=== PATIENT | male | born 1985 | race Caucasian/White ===

== ENCOUNTER 2020-08-20 16:52 | Outpatient (REF) | payer OTHER, SELFPAY ==
--- NOTE | 2020-08-20 | XR_ITS ---
EXAMINATION: XR LUMBOSACRAL SPINE WITH OBLIQUES CLINICAL INFORMATION: Low back pain with bilateral sciatica. COMPARISON: None TECHNIQUE: AP, both oblique, and lateral views of the lumbar spine. Lateral view of the lumbosacral junction. FINDINGS: Mild thoracolumbar levoscoliosis is seen with apex at L1. Mild to moderate disc space narrowing is seen at L5-S1. There is minimal grade 1 retrolisthesis. The vertebral bodies are intact. The remainder of the intervertebral disc spaces are unremarkable. Positioning is suboptimal, but the neural foramina appear patent. The facet joints are unremarkable. The soft tissues are unremarkable. XR/XR lumbar spine 4V min IMPRESSION: 1. Mild thoracolumbar levoscoliosis. 2. L5-S1 mild to moderate degenerative disc disease and minimal grade 1 retrolisthesis.
== END 2020-08-20 16:53 | disposition home or self-care (01) ==
LOC: HO.XRAY 16:52
PROVIDERS: PCP Internal Medicine; Visit Provider Internal Medicine
DX: M54.41 Lumbago with sciatica, right side (principal); M54.42 Lumbago with sciatica, left side
CPT/HCPCS: 72110

== ENCOUNTER 2020-12-19 15:47 | Outpatient (REF) | payer OTHER, SELFPAY ==
--- NOTE | ~2020-12-19 | US_ITS ---
EXAMINATION: US PELVIS, COMPLETE CLINICAL INFORMATION: Irregular menses. Pelvic pain. COMPARISON: None TECHNIQUE: Transabdominal and transvaginal imaging was performed. FINDINGS: LMP: 09/30/2020 Uterus is anteverted , measuring 10.8 x 4.6 x 4.9 cm. No focal uterine lesion. Calcification with posterior shadowing in the cervix. Nabothian cysts in the cervix. Endometrial thickness 0.9 cm. Right ovary measures 2.9 x 1.8 x 1.5 cm. Volume 4.1 mL. Right ovary appears unremarkable. Left ovary measures 3.3 x 2.6 x 2.7 cm. Volume 12.1 mL. Complex heterogeneous lesion, with isoechoic and hypoechoic echotexture, measuring 2 x 2 x 2 cm, without internal vascularity. No free fluid in the cul-de-sac. US/US pelvic and transvaginal IMPRESSION: Left ovarian 2 cm complex heterogeneous lesion. No internal vascularity. This could represent hemorrhagic cyst, versus other etiologies. Recommend follow-up ultrasound in 6-8 weeks.
== END 2020-12-19 15:48 | disposition home or self-care (01) ==
LOC: HO.US 15:47
PROVIDERS: Visit Provider Advanced Practice Midwife
DX: R10.2 Pelvic and perineal pain (principal); N92.6 Irregular menstruation, unspecified
CPT/HCPCS: 76830; 76856